=== PATIENT | male | born 1990 | race Caucasian/White ===

== ENCOUNTER 2017-07-01 08:44 | Emergency (ER) | payer OTHER ==
[~2017-07-01 08:44] MED LIST: COL100 PO; KEFLEX500 MG PO; LAC PO; NORCO1 TA2 PO
[2017-07-01 08:46] VITALS: BP 127/78
== END 2017-07-01 09:31 | disposition home or self-care (01) ==
LOC: ED 08:44
DX: K05.10 Chronic gingivitis, plaque induced (principal); K02.9 Dental caries, unspecified